=== PATIENT | male | born 1970 | race Caucasian/White ===

== ENCOUNTER 2024-07-29 10:12 | Outpatient (AMB) | payer BC, SELFPAY ==
--- NOTE | 2024-07-29 10:16 | MHC.PC.OV ---
Vital Signs 07/29/24 10:21 Height 5 ft 5 in Weight 237 lb 4 oz BMI 39.5 BP 110/60 Blood Pressure Location Rt brachial Position Sitting Respiration 14 Pulse 72 Pulse Source Pulse Oximeter Pulse Oximetry (%) 96 Oxygen Delivery Method Room Air Intake Visit Reasons: cpe (oshae keep appt ) Intake Note: Physical. 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 He has a significant past medical history of type 2 diabetes and hyperlipidemia. He normally follows with Dr. Krishna. Endo: Diabetes is being managed by Actos 30 mg and Mounjaro 5 mg weekly. No hypoglycemic events. Last A1c was 6.5 and today is 5.5. He is down 15 lbs. CV: Blood pressure today in the office is 110/60. He is not on any antihypertensives or statins. Colonoscopy: He was referred for this in the fall by his PCP but has not booked this. Would be open to a Cologuard. PSA: Up-to-date [facility] Family History (System 06/11/24 @ 09:49 by Bri Chaudhry) Mother Diverticulitis Father Diabetes mellitus Other Breast cancer Neoplasm, brain Social History (System 06/11/24 @ 09:49 by Bri Chaudhry) Housing: House Housing Other:: house, and town house in [place] Alcohol intake: current Patient Tobacco Use Status: Never used Tobacco e-Cigarette/Vaping Use: Never Used Second Hand Smoke Exposure: No Substance Use Type: Former Substance User and Marijuana service: Yes Current occupational status: employed Current occupation: manager policy Current occupational exposures/hazards: No Cognitive needs: No Hearing needs: No Vision needs: No Questionnaire Thrive Questionnaire Date Thrive assessed: 07/22/24 I am a: Patient What is your living situation today?: I have a steady place to live Within the past 12 months, did the food you bought not last and you didn't have the money to get more?: Never true Within the past 12 months, did you worry whether your food would run out before you got money to buy more?: Never true Do you have trouble paying for medicines?: No Do you have trouble getting transportation to medical appointments?: No Do you have trouble paying your heating and electricity bill?: No Do you have trouble taking care of your child, family member or friend?: No Do you have trouble with day-to-day activities such as bathing, preparing meals, shopping, managing finances, etc.?: No Are you currently unemployed and looking for a job?: No Are you interested in more education?: No THRIVE Score: 0 AUDIT C Alcohol Use Questionnaire (AUDIT-C) 1. How often do you have a drink containing alcohol?: 2-4 times a month 2. How many drinks containing alcohol do you have on a typical day when you are drinking?: 3 or 4 3. How often do you have six or more drinks on one occasion?: Less than monthly Total Score: 4 JOEL-7 AMB Questionnaire JOEL-7 Date JOEL - 7 assessed: 02/20/24 Feeling nervous, anxious, or on edge: 0 = Not at all Not being able to stop or control worryin = Not at all Worrying too much about different things: 0 = Not at all Trouble relaxin = Not at all Being so restless that it is hard to sit still: 0 = Not at all Becoming easily annoyed or irritable: 0 = Not at all Feeling afraid as if something awful might happen: 0 = Not at all Total JOEL-7 score (0-4 normal; 5-9 mild; 10-14 moderate; 15-21 severe): 0 Source: Developed by Drs. Benito Dejesus, Iliana Miles, Drew Tavarez and colleagues, with an educational darnell from [employer]. Physical exam (Primary Care) Vital Signs: Last Vital Signs Pulse 72 07/29/24 10:21 Resp 14 07/29/24 10:21 BP 110/60 07/29/24 10:21 Pulse Ox 96 07/29/24 10:21 Oxygen Delivery Method Room Air 07/29/24 10:21 BMI result Body Mass Index 39.5 Tobacco/Smoking Status: Tobacco use Status Tobacco use date assessed 07/29/24 07/29/24 10:17 Patient Tobacco Use Status Never used Tobacco 07/29/24 10:17 e-Cigarette/Vaping Use Never Used 07/29/24 10:17 Thrive Assessment: Date of Thrive Assessment Date Thrive assessed 07/22/24 07/29/24 10:17 Const Orientation/consciousness: patient oriented x3 HENMT Ears: hearing grossly normal bilaterally and TM's normal bilaterally General nose exam: No nasal polyps present Face and sinus: Yes sinuses nontender Mouth: Normal oral and palatal mucosa present Eyes Pupils: Equal, round and reactive pupils present EOM: EOMs intact bilaterally Neck Neck: Yes full ROM and Yes no lymphadenopathy Thyroid: Thyroid normal Chest Chest palpation & inspection: normal inspection of the chest Resp Auscultation: clear to auscultation bilaterally Cardio Rate: regular rate Rhythm: regular rhythm Heart sounds: S1 normal heart sound present and S2 normal heart sound present Peripheral pulses: Peripheral pulses 2+ throughout GI Other: Soft, nontender Auscultation: normal bowel sounds Rectal Exam - Male: Yes deferred General: Yes no CVA tenderness Back/Spine/Pelvis Other: Nontender Back: no CVA tenderness Skin General skin exam: no rashes or lesions noted Neuro General: patient oriented x3, gait normal, CN's II-XI intact bilaterally and deep tendon reflexes 2+ bilaterally Cranial nerves: Yes Equal, round and reactive pupils present Motor exam (neuro): 5/5 motor strength present throughout Sensory Exam: double simultaneous stimulation for sensation normal Coordination: [id number] test normal and Romberg test negative Extrem General: Yes normal to inspection and Yes full ROM Psych Affect: normal affect Attitude: cooperative Thought process: Normal thought process present Thought content: Normal thought content present Insight: Good insight present (Psych) Judgement: Good judgement present (Psych) Results AMB Hemoglobin A1c AMB Hemoglobin A1c 5.5 % Last Edit by Angelic Mcleod CMA on 07/29/24 10:32 Results Reviewed Results Reviewed: Laboratory Tests 02/20/24 15:51 Creatinine 0.90 Estimated GFR > 60 Hemoglobin A1c % 6.5 H Prostate Specific Ag 0.61 Coding Level of Care Code Est Pt Prev Care 40-64y(28087) Diagnoses Routine general medical examination at a health care facility Z00.00 Type 2 diabetes mellitus without complication, without long-term current use of insulin E11.9 Diabetes mellitus care home insulin use: without care home use Diabetes mellitus complication status: without complication Hypertriglyceridemia E78.1 Assessment & Plan Assessment & Plan (1) Routine general medical examination at a health care facility: Code(s): Z00.00 - Encounter for general adult medical examination without abnormal findings Plan: Health maintenance reviewed. Cologuard ordered. Labs ordered. (2) Type 2 diabetes mellitus: Code(s): E11.9 - Type 2 diabetes mellitus without complications Category: Medical Qualifiers: Diabetes mellitus care home insulin use: without senior software tester use Diabetes mellitus complication status: without complication Qualified Code(s): E11.9 - Type 2 diabetes mellitus without complications Plan: A1c has significantly improved. He has lost weight with Mounjaro. Recently started with the increased dose. Continue current regimen with the Mounjaro. Discontinue Actos. (3) Hypertriglyceridemia: Code(s): E78.1 - Pure hyperglyceridemia Category: Medical Plan: Lipids ordered. We will follow up pending test results. Orders: Orders AMB Hemoglobin A1c Today E11.9 - Type 2 diabetes mellitus without complications Lipid Panel Today E11.9 - Type 2 diabetes mellitus without complications, E78.1 - Pure hyperglyceridemia B Type Natriuretic Peptide Today E11.9 - Type 2 diabetes mellitus without complications, E78.1 - Pure hyperglyceridemia Liver Panel Today E11.9 - Type 2 diabetes mellitus without complications, E78.1 - Pure hyperglyceridemia Basic Metabolic Panel Today E11.9 - Type 2 diabetes mellitus without complications, E78.1 - Pure hyperglyceridemia Referrals Cologuard Test Z12.11 - Encounter for screening for malignant neoplasm of colon Medications: Refilled tirzepatide (Mounjaro) 5 mg (0.5 mL) subcut QWEEK 2 mL 4RF E11.9 - Type 2 diabetes mellitus without complications Discontinued Mounjaro (tirzepatide) for 4 weeks Discontinued Reason: Patient no longer taking 2.5 mg (0.5 mL) subcut QWEEK 2 mL 3RF NS metformin ER Discontinued Reason: Patient no longer taking 1,000 mg (2 x 500 mg) PO BID 180 tabs 3RF
[2024-07-29 10:21] VITALS: BP 110/60; PULSE 72; RESP 14; O2SAT 96; BMI 39.5
== END 2024-07-29 10:50 | disposition home or self-care (01) ==
PROVIDERS: PCP Internal Medicine; Visit Provider Physician Assistant
DX: Z00.00 Encounter for general adult medical examination without abnormal findings (principal); E11.9 Type 2 diabetes mellitus without complications; E78.1 Pure hyperglyceridemia

== ENCOUNTER → 2024-07-29 10:12 | Outpatient (BNVA) | payer BC, SELFPAY | PROVIDERS: PCP Internal Medicine; Visit Provider Physician Assistant | DX: Z00.00 Encounter for general adult medical examination without abnormal findings (principal); E11.9 Type 2 diabetes mellitus without complications; E78.1 Pure hyperglyceridemia | CPT/HCPCS: 83036 ==

== ENCOUNTER 2024-07-29 10:51 | Outpatient (REF) | payer BC, SELFPAY ==
[2024-07-29 14:44] LABS: Alanine Aminotransferase 34 U/L (0-40); Albumin Level 4.3 g/dL (3.5-5.0); Alkaline Phosphatase 54 U/L (39-117); Anion Gap 9 (12-20); Aspartate Amino Transferase 28 U/L (5-37); Bilirubin Direct 0.2 mg/dL (0.0-0.5); Bilirubin Total 0.7 mg/dL (0.0-1.0); Blood Urea Nitrogen 13 mg/dL (9-16); Calcium 9.1 mg/dL (8.4-10.2); Carbon Dioxide 25 mmol/L (22-29); Chloride 108 mmol/L (96-108); Cholesterol 209 mg/dL (<200); Estimated Glomerular Filt Rate > 60; Glucose Random 103 mg/dL (60-115); HDL Cholesterol 39 mg/dL (>40); LDL Cholesterol Calculated 134 mg/dL (<100); Potassium 4.3 mmol/L (3.3-5.1); Sodium 138 mmol/L (135-145); Total Protein 6.6 g/dL (6.5-8.0); Triglycerides 184 mg/dL (<150)
[2024-07-29 14:54] LABS: B Type Natriuretic Peptide < 10 pg/mL (<100)
== END 2024-07-29 10:52 | disposition home or self-care (01) ==
LOC: HO.WFDLDS 10:51
PROVIDERS: Visit Provider Physician Assistant
DX: E78.1 Pure hyperglyceridemia (principal); E11.9 Type 2 diabetes mellitus without complications
CPT/HCPCS: 36415; 80048; 80061; 80076; 83880

== ENCOUNTER 2025-04-01 11:02 | Outpatient (REF) | payer BC, SELFPAY ==
--- OUTSIDE RECORDS SUMMARY | 2025-04-01 11:06 | XMS_ITS | Clinical Summary ---
Author Organization [facility] Address [address] [place] [address] Care Team Providers Care Patient Navigator Name Role Phone Unavailable Primary Care Provider Unavailabl e Social History Tobacco Use Types Packs/Day Years Used Date Smoking Tobacco: Never Assessed Sex and Gender Information Value Date Recorded Sex Assigned at Male 11/22/2020 11:20 AM EDT Legal Sex Male 12:20 PM EST Gender Identity Male 11/22/2020 11:20 AM EDT Sexual Orientation Not on file Plan of Treatment Not on file Medical Devices Not on file Insurance [facility]
[2025-04-01 17:09] LABS: MANUAL DIFF FLAG NO
[2025-04-01 17:18] LABS: Hematocrit 52.3 % (42.0-52.0); Hemoglobin 17.9 g/dl (14.0-18.0); Imm Gran Abs Auto 0.03 X10*3/uL (0.00-0.03); Imm Gran Pct Auto 0.6 % (0.0-0.4); Lymphocytes Absolute Auto 1.8 X10*3/uL (1.2-4.9); Mean Corpuscular HGB Conc 34.2 g/dl (31.0-36.0); Mean Corpuscular Hemoglobin 29.9 pg (27.0-33.0); Mean Corpuscular Volume 87.5 fL (80.0-98.0); NRBC Abs Auto 0.000 X10*3/uL (0.0-0.012); NRBC Pct Auto 0.0 /100WBC (0.0-0.2); Platelet Count 166 X10*3/uL (160-400); Red Blood Count 5.98 X10*6/uL (4.60-5.80); White Blood Count 4.7 X10*3/uL (4.8-10.8)
[2025-04-01 17:47] LABS: Microalbum/Creatinine Ratio Ur 3.7 ug/mg cr (<30)
[2025-04-01 17:59] LABS: Alanine Aminotransferase 48 U/L (0-40); Albumin Level 4.6 g/dL (3.5-5.0); Alkaline Phosphatase 57 U/L (39-117); Anion Gap 12 (12-20); Aspartate Amino Transferase 29 U/L (5-37); Blood Urea Nitrogen 17 mg/dL (9-16); Calcium 9.1 mg/dL (8.4-10.2); Carbon Dioxide 25 mmol/L (22-29); Chloride 108 mmol/L (96-108); Cholesterol 207 mg/dL (<200); Estimated Glomerular Filt Rate > 60; HDL Cholesterol 36 mg/dL (>40); Potassium 4.5 mmol/L (3.3-5.1); Sodium 140 mmol/L (135-145); Total Protein 6.7 g/dL (6.5-8.0); Triglycerides 256 mg/dL (<150)
[2025-04-01 18:09] LABS: Prostate Specific Antigen 0.59 ng/mL (<0.05-4.0)
== END 2025-04-01 11:03 | disposition home or self-care (01) ==
LOC: HO.WFDLDS 11:02
PROVIDERS: Visit Provider Internal Medicine
DX: E78.1 Pure hyperglyceridemia (principal); E11.9 Type 2 diabetes mellitus without complications; Z12.5 Encounter for screening for malignant neoplasm of prostate; Z13.0 Encounter for screening for diseases of the blood and blood-forming organs and certain disorders involving the immune mechanism
CPT/HCPCS: 36415; 80053; 80061; 82043; 82570; 83036; 84153; 85025